=== PATIENT | male | born 1970 | race Caucasian/White ===

== ENCOUNTER 2018-04-28 07:20 | Day surgery (SDC) | payer SELFPAY ==
[~2018-04-28] VITALS: Ht 175.3 cm; Wt 81.8 kg
[2018-04-28] VITALS (8 sets, daily range): BP systolic 114–177; BP diastolic 52–93; PULSE 76–105; TEMP 98.1–99
[2018-04-28 07:55] LABS: BASO % 0.4 % (0.0-2.0); EOS # 0.1 (0.0-0.7); EOS % 1.1 % (0-4.0); GRAN # 6.5 (1.4-6.5); GRAN % 77.2 % (42.2-75.2); HEMATOCRIT 48.3 % (42.0-52.0); LYMPH # 0.9 (1.2-3.4); LYMPH % 10.6 % (20.0-51.0); MEAN CELL VOLUME 84 fl (80.0-100.0); MEAN CORPUSCULAR HEMOGLOBIN 30 pg (27.0-31.0); MEAN CORPUSCULAR HGB CONC 35 g/dl (33.0-37.0); MONO # 0.8 (0.1-0.6); MONO % 9.6 % (1.7-9.3); PLATELET COUNT 190 K/mm3 (130-400); RED BLOOD COUNT 5.73 M/mm3 (4.20-5.60); REDCELL DISTRIBUTION WIDTH-CV 13.2 % (11.5-14.5)
[2018-04-28 08:08] LABS: ALBUMIN 4.5 gm/dL (3.5-5.0); BILIRUBIN,TOTAL 1.2 mg/dL (0.0-1.0); C-REACTIVE PROTEIN 1.2 mg/dL (0.0-0.9); CALCIUM 9.4 mg/dL (8.4-10.2); CREATININE, serum 1.02 mg/dL (0.66-1.25); POTASSIUM 4.3 mmol/L (3.4-5.0); TOTAL PROTEIN 7.4 gm/dL (6.4-8.2)
[2018-04-28 09:28] LABS: COLLECTION METHOD CLEAN CATCH
[2018-04-28 09:35] LABS: MUCOUS Present /lpf; PH 7 (5-8); SQUAMOUS EPITHELIAL None Seen /hpf; URINE APPEARANCE Clear; URINE BACTERIA None Seen /hpf; URINE BILIRUBIN Negative (NEGATIVE); URINE BLOOD Negative (NEGATIVE); URINE COLOR Yellow; URINE GLUCOSE Negative (NEGATIVE); URINE KETONE Negative (NEGATIVE); URINE LEUKOCYTE ESTERASE Negative (NEGATIVE); URINE NITRATE Negative (NEGATIVE); URINE PROTEIN(semi-quant) Negative (NEGATIVE); URINE RBC 0-2 /hpf; URINE UROBILINOGEN Negative (NEGATIVE)
[2018-04-29 04:25] VITALS: BP 123/65; PULSE 92; TEMP 98.7
[2018-04-29 09:05] VITALS: BP 148/86; PULSE 82; TEMP 98.4
[2018-04-29] MEDS ORDERED: NORCO 325 MG-7.1 TAB PO (10:56)
== END 2018-04-29 11:10 | disposition home or self-care (01) ==
LOC: COL.ER 07:20 → SDCO 09:56 → SURG 17:07 → SDCO 04-29 11:10
PROVIDERS: Emergency Medicine
DX: K35.80 Unspecified acute appendicitis (principal); Q63.1 Lobulated, fused and horseshoe kidney; I10 Essential (primary) hypertension; F17.210 Nicotine dependence, cigarettes, uncomplicated
CPT/HCPCS: OP; J0360; J0696; J1100; J1170; J1885; J2270; J2405; J2704; J2710; J3010; J7030; J7120; Q9967